=== PATIENT | female | born 1985 | race Caucasian/White ===

== ENCOUNTER 2017-09-05 10:49 | Observation (INO) | payer OTHER ==
[~2017-09-05] VITALS: Ht 160 cm; Wt 117.8 kg
[2017-09-05] MEDS ORDERED: METOPROL TAR25 MG PO (10:58)
[2017-09-05] MEDS ORDERED: PRILOSEC20 MG PO (10:58)
[2017-09-05] MEDS ORDERED: ATORVASTATIN CA40 MG PO (10:59)
--- NOTE | 2017-09-05 11:02 | NUR ---
PT REFUSED WC, AMBULATED TO ER ROOM 12 WITH SPOUSE. CHANGED INTO GOWN.
--- NOTE | 2017-09-05 11:20 | NUR ---
PATIENT RESTING COMFORTABLY IN STRETCHER WITH HOB ELEVATED. PATIENT REPORTS MIDSTERNAL CHEST PAIN RADIATING TO THE RIGHT ANTERIOR CHEST. PAITENT REOIRTS SOB AND NAUSEA WELL. SA02 88% ON ROOM AIR AT THIS TIME. LS CLEAR. SYMETRICAL RISE AND FALL NOTED TO THE CHEST, PATIENT REPORTS PAIN UPON DEEP INSPIRATION. MD NOTIFIED OF LOW SAO2 SAT. WILL CONTINUE TO MONITOR.
[2017-09-05 11:48] LABS: HEMATOCRIT 35.6 % (37.0-47.0); HEMOGLOBIN 10.9 g/dl (12.0-16.0); IMMATURE GRANULOCYTES 0.4 % (0.0-1.0); MEAN CELL VOLUME 78.8 fL CALC (80.0-100.0); MEAN CORPUSCULAR HGB 24.1 pG CALC (26.0-32.0); MEAN CORPUSCULAR HGB CONC 30.6 g/L CALC (32.0-36.0); NEUT# 6.71 thou/uL (2.00-7.15); RED BLOOD COUNT 4.52 mill/uL (4.20-5.60); RED CELL DISTRI WIDTH 15.7 % (11.5-15.5)
--- NOTE | 2017-09-05 12:00 | NUR ---
SAO2 98% ON ROOM AIR PATIENT REPORTS MINIMAL SOB AT THIS TIME WELL CONTINUED 07/02 MIDSTERNAL CP. AWARE.
[2017-09-05 12:11] LABS: ALBUMIN 4.1 g/dL (3.2-5.0); ALKALINE PHOSPHATASE 106 u/l (38-126); AMYLASE 37 u/l (30-110); ANION GAP 13 (6-22 (CALC)); BILIRUBIN, TOTAL 0.4 mg/dL (0.0-1.4); BUN 9 mg/dL (7-17); BUN/CREATININE RATIO 14 (12-20 (CALC)); CALCIUM 9.4 mg/dL (8.4-10.2); CARBON DIOXIDE 28 mmol/l (22-30); CHLORIDE 104 mmol/l (95-108); CREATININE 0.7 mg/dL (0.5-1.0); GFR > 60 ML/MIN (>=60 (CALC)); GFR FOR AFR.AMER. > 60 ML/MIN (>=60 (CALC)); GLUCOSE 89 mg/dL (65-105); LIPASE 38 u/l (23-300); POTASSIUM 4.4 mmol/l (3.5-5.1); SGOT/AST 24 u/l (14-36); SGPT/ALT 28 u/l (9-52); SODIUM 140 mmol/l (137-146); TOTAL PROTEIN 7.9 g/dL (6.3-8.2)
--- NOTE | 2017-09-05 12:20 | NUR ---
PATIENT AMBULATED TO THE BATHROOM WITH A STEADY GAIT. PATIENT DENIES ANY SOB AT THIS TIME. URINE SAMPLE COLLECTED.
[2017-09-05 12:23] LABS: MYOGLOBIN 20 ng/mL (0 - 62)
--- NOTE | 2017-09-05 12:52 | NUR ---
SAO2 88% ON ROOM AIR, GOOD WAVEFORM NOTED. PATIENT DENEIS ANY FURTHER SOB AT THIS TIME. WILL CONTINUE TO MONITOR. AWARE.
--- NOTE | 2017-09-05 13:10 | NUR ---
PATIENT REPORTED CONTINUED PAIN TO THE MIDSTERNAL CHEST AND NAUSEA AFTER RECIEVEING THE CONTRAST. MD NOTIIFED, AWAITING ORDERS.
--- NOTE | 2017-09-05 13:32 | NUR ---
PATIENT REPORTS PAIN IS NOW 7/10 AND DENIES ANY NAUSEA AT THIS TIME. WILL CONTINUE TO MONITOR. CALL [facility] WITHIN REACH.
--- NOTE | 2017-09-05 14:06 | NUR ---
MD AT BEDSIDE TO DISCUSS RESULTS AND ADMISSION.
--- NOTE | 2017-09-05 14:11 | NUR ---
PATIENT AMBULATED TO THE BATHROOM WITH A STEADY GAIT.
--- NOTE | 2017-09-05 14:16 | NUR ---
SBAR PRINTED TO FLOOR
[2017-09-05 14:20] LABS: URINE BILIRUBIN - DIPSTICK NEGATIVE (NEGATIVE); URINE BLOOD DIPSTICK NEGATIVE (NEGATIVE); URINE COLOR YELLOW; URINE GLUCOSE - DIPSTICK NEGATIVE (NEGATIVE); URINE KETONE NEGATIVE (NEGATIVE); URINE LEUK ESTERASE NEGATIVE (NEGATIVE); URINE NITRITE - DIPSTICK NEGATIVE (Negative); URINE PROTEIN - DIPSTICK NEGATIVE (NEG-TRACE); URINE UROBILINOGEN - DIPSTICK 0.2 E.U./dL (0.2)
[2017-09-05 14:21] LABS: URINE CLARITY CLEAR
[2017-09-05 14:25] LABS: BARBITURATES NEGATIVE (NEGATIVE); COCAINE NEGATIVE (NEGATIVE); METHADONE NEGATIVE (NEGATIVE); OXCYCODONE NEGATIVE (NEGATIVE); TETRAHYDROCANNABIONOL NEGATIVE (NEGATIVE); TRICYLIC ANTIDEPRESSANTS NEGATIVE (NEGATIVE)
--- NOTE | 2017-09-05 14:45 | NUR ---
REPORT GIVEN TO ANGLE SAXENA.
--- NOTE | 2017-09-05 14:45 | NUR ---
PT ARRIVED FROM ER VIA WC ACCOMPANIE DBY STAFF IV SITE IS FREE FROM REDNESS OR EDEMA. TELE MONITOR IN PLACE. CONTINUE TO OBSERVE AND MONITOR.
--- NOTE | 2017-09-05 14:50 | NUR ---
Admission Note Report Given to: sbar printed to floor Transported by: Wheelchair x Stretcher Transported with: x Nurse Transporter x Patent IV O2 x Instructional Supervisor
[2017-09-05 15:00] VITALS: BP 138/79
--- NOTE | 2017-09-05 15:15 | NUR ---
ASSESSMENT IS COMPLETED: NO DISTRESS NTOED. NO C/O CP . IV SITE IS FREE FROM REDNESS OR EDEMA. CONTINUE TO OSBERVE AND MONITOR.
[2017-09-05 15:49] LABS: MAGNESIUM 1.8 mg/dL (1.6-2.3)
--- NOTE | 2017-09-05 18:00 | NUR ---
PT IS RELAXING AND TALKING ON THE PHONE NO DISTRESS NOTED. IV SITE IS FREE FROM REDNESS OR EDEMA.
--- NOTE | 2017-09-05 19:00 | NUR ---
RECEIVED CHANGE OF SHIFT EPORT FROM ANGLE SXAENA. PATIENT LYING IN BED AND APPEARS NOT TO BE IN ANY APPARENT ACUTE DISTRESS. REPORTS URRELIEVED PAIN TO BACK. WILL CONTINUE TO MONITOR AND ACCESS.
--- NOTE | 2017-09-05 19:25 | NUR ---
MEDICATE PATIENT WITH 50 MG OF ULTRAM po ORDERED. WILL CONTINUE TO MONITOR.
[2017-09-05 19:35] VITALS: BP 113/66
--- NOTE | 2017-09-06 | NUR ---
PATIENT RESTING QUIETLY AT THIS TIME.
[2017-09-06 00:11] VITALS: BP 88/54
--- NOTE | 2017-09-06 05:00 | NUR ---
NO APPARENT ACUTE CHANGES NOTED IN PT'S CONDITION.
[2017-09-06 05:32] VITALS: BP 85/56
[2017-09-06 06:39] LABS: HEMATOCRIT 34.9 % (37.0-47.0); HEMOGLOBIN 10.7 g/dl (12.0-16.0); IMMATURE GRANULOCYTES 0.4 % (0.0-1.0); MEAN CELL VOLUME 77.7 fL CALC (80.0-100.0); MEAN CORPUSCULAR HGB 23.8 pG CALC (26.0-32.0); MEAN CORPUSCULAR HGB CONC 30.7 g/L CALC (32.0-36.0); NEUT# 5.26 thou/uL (2.00-7.15); RED BLOOD COUNT 4.49 mill/uL (4.20-5.60); RED CELL DISTRI WIDTH 15.9 % (11.5-15.5)
[2017-09-06 06:56] LABS: CHOLESTEROL HDL RATIO 3.8 (<4.4 (CALC))
[2017-09-06 06:57] LABS: ANION GAP 14 (6-22 (CALC)); BUN 10 mg/dL (7-17); BUN/CREATININE RATIO 15 (12-20 (CALC)); CALCIUM 8.9 mg/dL (8.4-10.2); CARBON DIOXIDE 26 mmol/l (22-30); CHLORIDE 103 mmol/l (95-108); CREATININE 0.7 mg/dL (0.5-1.0); GFR > 60 ML/MIN (>=60 (CALC)); GFR FOR AFR.AMER. > 60 ML/MIN (>=60 (CALC)); GLUCOSE 95 mg/dL (65-105); MAGNESIUM 1.8 mg/dL (1.6-2.3); POTASSIUM 4.3 mmol/l (3.5-5.1); SODIUM 138 mmol/l (137-146)
[2017-09-06 07:45] VITALS: BP 110/45
--- NOTE | 2017-09-06 07:45 | NUR ---
ASSESSMENT IS COMPLETED: IV SITE IS FREE FROM REDNESS OR EDEMA. HAS GENERALIZED PAIN. FAMILY IN THE ROOM. CONTINUE TO OBSERVE AND MONITOR.
[2017-09-06 11:30] VITALS: BP 97/65
--- NOTE | 2017-09-06 12:45 | NUR ---
PT IS RELAXING IN BED FAMILY IN THE ROOM. IV SITE IS FREE FROM REDNESS OR EDEMA. CONTINUE TO OBSERVE AND MONITOR.
[2017-09-06] MEDS ORDERED: MEDDOSEPAK PO (15:06)
[2017-09-06] MEDS ORDERED: ADLT ASA LOW81 MG PO (15:06)
--- NOTE | 2017-09-06 16:20 | NUR ---
DISCHARGE INSTRUCTIONS GIVEN AND VERBALIZED UNDERSTANDING. CONTINUE TO OBSERVE AND MONITOR.
--- NOTE | 2017-09-06 16:42 | NUR ---
PT WAS TRANSPORTED TO HER VEHICLE WITH SPOUSE AT HER SIDE. IV SITE WAS DISCONTINUED CATHETER INTACT. NO REDNESS OR EDEMA. TELE MONITOR COMPLETED; Discharge instructions given. Patient verbalizes understanding of same. Discharged in stable condition via Wheelchair to Home with family. All belongings sent with pt.
== END 2017-09-06 16:17 | disposition home or self-care (01) | DRG 313 ==
LOC: ED 10:49 → ED-I 13:58 → ED 14:15 → MS2 14:16
PROVIDERS: Emergency Medicine; Nurse Practitioner Family; ADMIT Internal Medicine; ATTEND Internal Medicine
DX: R07.89 Other chest pain (principal); M32.9 Systemic lupus erythematosus, unspecified; M35.1 Other overlap syndromes; F41.9 Anxiety disorder, unspecified; E78.5 Hyperlipidemia, unspecified; J45.909 Unspecified asthma, uncomplicated; M79.7 Fibromyalgia; Z87.891 Personal history of nicotine dependence; Z82.49 Family history of ischemic heart disease and other diseases of the circulatory system
CPT/HCPCS: G0378; Q9967

== ENCOUNTER 2017-09-12 16:55 | Emergency (ER) | payer OTHER ==
[~2017-09-12] VITALS: Ht 160 cm; Wt 130.0 kg
[~2017-09-12 16:55] MED LIST: ADLT ASA LOW81 MG PO; ATORVASTATIN CA40 MG PO; MEDDOSEPAK PO; METOPROL TAR25 MG PO; PRILOSEC20 MG PO
[2017-09-12] MEDS ORDERED: AMOXICILLIN500 MG PO (17:37)
[2017-09-12 17:44] VITALS: BP 122/66
== END 2017-09-12 17:48 | disposition home or self-care (01) | DRG 153 ==
LOC: ED 16:55
DX: J02.9 Acute pharyngitis, unspecified (principal); M32.9 Systemic lupus erythematosus, unspecified; F41.9 Anxiety disorder, unspecified; J45.909 Unspecified asthma, uncomplicated; M79.7 Fibromyalgia; M13.80 Other specified arthritis, unspecified site

== ENCOUNTER 2017-10-05 19:52 | Emergency (ER) | payer OTHER ==
[~2017-10-05] VITALS: Ht 160 cm; Wt 122.4 kg
[~2017-10-05 19:52] MED LIST changes: +AMOXICILLIN500 MG PO
[2017-10-05 20:51] LABS: HEMATOCRIT 34.3 % (37.0-47.0); HEMOGLOBIN 10.7 g/dl (12.0-16.0); IMMATURE GRANULOCYTES 0.4 % (0.0-1.0); MEAN CELL VOLUME 78.7 fL CALC (80.0-100.0); MEAN CORPUSCULAR HGB 24.5 pG CALC (26.0-32.0); MEAN CORPUSCULAR HGB CONC 31.2 g/L CALC (32.0-36.0); NEUT# 8.65 thou/uL (2.00-7.15); RED BLOOD COUNT 4.36 mill/uL (4.20-5.60); RED CELL DISTRI WIDTH 15.8 % (11.5-15.5)
[2017-10-05 20:55] LABS: URINE BILIRUBIN - DIPSTICK NEGATIVE (NEGATIVE); URINE BLOOD DIPSTICK SMALL (NEGATIVE); URINE COLOR YELLOW; URINE GLUCOSE - DIPSTICK NEGATIVE (NEGATIVE); URINE KETONE NEGATIVE (NEGATIVE); URINE LEUK ESTERASE NEGATIVE (NEGATIVE); URINE NITRITE - DIPSTICK NEGATIVE (Negative); URINE PROTEIN - DIPSTICK NEGATIVE (NEG-TRACE); URINE UROBILINOGEN - DIPSTICK 0.2 E.U./dL (0.2)
[2017-10-05 20:56] LABS: URINE CLARITY CLEAR
[2017-10-05 20:58] LABS: ALBUMIN 3.9 g/dL (3.2-5.0); ALKALINE PHOSPHATASE 126 u/l (38-126); AMYLASE 38 u/l (30-110); ANION GAP 13 (6-22 (CALC)); BILIRUBIN, TOTAL 0.2 mg/dL (0.0-1.4); BUN 11 mg/dL (7-17); BUN/CREATININE RATIO 13 (12-20 (CALC)); CALCIUM 8.9 mg/dL (8.4-10.2); CARBON DIOXIDE 28 mmol/l (22-30); CHLORIDE 103 mmol/l (95-108); CREATININE 0.9 mg/dL (0.5-1.0); GFR > 60 ML/MIN (>=60 (CALC)); GFR FOR AFR.AMER. > 60 ML/MIN (>=60 (CALC)); GLUCOSE 90 mg/dL (65-105); LIPASE 47 u/l (23-300); POTASSIUM 4.3 mmol/l (3.5-5.1); SGOT/AST 27 u/l (14-36); SGPT/ALT 22 u/l (9-52); SODIUM 140 mmol/l (137-146); TOTAL PROTEIN 7.5 g/dL (6.3-8.2)
[2017-10-05 21:02] LABS: URINE SQUAMOUS EPITHELIAL CELL FEW EPI/hpf (0-FEW); URINE WBC 0-2 WBC/hpf (0-5)
[2017-10-05 21:49] VITALS: BP 124/71
== END 2017-10-05 21:51 | disposition home or self-care (01) | DRG 392 ==
LOC: ED 19:52
PROVIDERS: Emergency Medicine
DX: R10.12 Left upper quadrant pain (principal); D64.9 Anemia, unspecified; R05 Cough
CPT/HCPCS: S0164

== ENCOUNTER 2017-10-23 03:27 | Emergency (ER) | payer OTHER ==
[~2017-10-23] VITALS: Ht 160 cm; Wt 121.0 kg
[2017-10-23 04:42] LABS: INFLUENZA A POSITIVE (NONE DETECT); INFLUENZA B NONE DETECTED (NONE DETECT)
[2017-10-23] MEDS ORDERED: TAM75CAP PO (05:15)
[2017-10-23] MEDS ORDERED: CODEINE/GUAIFEN1 SOL PO (05:15)
[2017-10-23 05:40] VITALS: BP 122/71
== END 2017-10-23 05:42 | disposition home or self-care (01) | DRG 153 ==
LOC: ED 03:27
PROVIDERS: Emergency Medicine
DX: J11.1 Influenza due to unidentified influenza virus with other respiratory manifestations (principal); R05 Cough; R50.9 Fever, unspecified; R09.89 Other specified symptoms and signs involving the circulatory and respiratory systems

== ENCOUNTER 2019-03-17 18:14 | Emergency (ER) | payer OTHER ==
[~2019-03-17] VITALS: Ht 160 cm; Wt 150.0 kg
[~2019-03-17 18:14] MED LIST changes: +CODEINE/GUAIFEN1 SOL PO; +TAM75CAP PO
[2019-03-17] MEDS ORDERED: PANTOPRAZOLE SO40 MG PO (18:53)
[2019-03-17 19:03] LABS: HEMATOCRIT 36.5 % (37.0-47.0); IMMATURE GRANULOCYTES 0.4 % (0.0-5.0); MEAN CELL VOLUME 79.3 fL CALC (80.0-100.0); MEAN CORPUSCULAR HGB 23.9 pG CALC (26.0-32.0); MEAN CORPUSCULAR HGB CONC 30.1 g/L CALC (32.0-36.0); NEUT# 5.95 thou/uL (2.00-7.15); RED BLOOD COUNT 4.6 mill/uL (4.20-5.60); RED CELL DISTRI WIDTH 16.3 % (11.5-15.5)
[2019-03-17 19:23] LABS: ALBUMIN 4.1 g/dL (3.2-5.0); ALKALINE PHOSPHATASE 113 u/l (38-126); ANION GAP 12 (6-22 (CALC)); BILIRUBIN, TOTAL 0.3 mg/dL (0.0-1.4); BUN 10 mg/dL (7-17); BUN/CREATININE RATIO 16 (12-20 (CALC)); CARBON DIOXIDE 28 mmol/l (22-30); CHLORIDE 105 mmol/l (95-108); CREATININE 0.6 mg/dL (0.5-1.0); GFR > 60 ML/MIN (>=60 (CALC)); GFR FOR AFR.AMER. > 60 ML/MIN (>=60 (CALC)); LIPASE 30 u/l (23-300); POTASSIUM 4.1 mmol/l (3.5-5.1); SODIUM 141 mmol/l (137-146); TOTAL PROTEIN 7.7 g/dL (6.3-8.2)
[2019-03-17 19:24] LABS: SGOT/AST 37 u/l (14-36)
[2019-03-17 19:30] LABS: URINE BILIRUBIN - DIPSTICK NEGATIVE (NEGATIVE); URINE BLOOD DIPSTICK SMALL (NEGATIVE); URINE CLARITY CLEAR; URINE COLOR YELLOW; URINE GLUCOSE - DIPSTICK NEGATIVE (NEGATIVE); URINE KETONE NEGATIVE (NEGATIVE); URINE LEUK ESTERASE NEGATIVE (Negative); URINE NITRITE - DIPSTICK NEGATIVE (Negative); URINE PH 6.5 (4.5-8.0); URINE PROTEIN - DIPSTICK NEGATIVE (NEG-TRACE); URINE UROBILINOGEN - DIPSTICK 0.2 E.U./dL (0.2)
[2019-03-17 19:44] LABS: URINE SQUAMOUS EPITHELIAL CELL FEW EPI/hpf (0-FEW)
[2019-03-17] MEDS ORDERED: REGLAN10 MG PO (19:48)
[2019-03-17 20:14] VITALS: BP 115/55
== END 2019-03-17 20:14 | disposition home or self-care (01) ==
LOC: ED 18:14
DX: R10.13 Epigastric pain (principal); R10.12 Left upper quadrant pain; R11.0 Nausea

== ENCOUNTER 2020-12-09 08:25 | Emergency (ER) | payer OTHER ==
[~2020-12-09] VITALS: Ht 160 cm; Wt 136.0 kg
[~2020-12-09 08:25] MED LIST changes: +PANTOPRAZOLE SO40 MG PO; +REGLAN10 MG PO
[2020-12-09] MEDS ORDERED: CEPHALEXIN500 M1 PO (08:48)
[2020-12-09] MEDS ORDERED: BACTRIM DS1 TAB PO (08:48)
[2020-12-09 11:09] VITALS: BP 157/89
== END 2020-12-09 11:10 | disposition home or self-care (01) ==
LOC: ED 08:25
DX: L02.415 Cutaneous abscess of right lower limb (principal); J45.909 Unspecified asthma, uncomplicated; F41.9 Anxiety disorder, unspecified; F31.9 Bipolar disorder, unspecified; F17.200 Nicotine dependence, unspecified, uncomplicated

== ENCOUNTER 2022-07-25 21:35 | Emergency (ER) | payer OTHER ==
[~2022-07-25] VITALS: Ht 160 cm; Wt 125.0 kg
[~2022-07-25 21:35] MED LIST changes: +BACTRIM DS1 TAB PO; +CEPHALEXIN500 M1 PO
[2022-07-25] MEDS ORDERED: METOPROLOL TART50 MG PO (22:40)
[2022-07-25] MEDS ORDERED: OMEPRAZOLE20 MG PO (22:41)
[2022-07-25] MEDS ORDERED: ADVAIR DISK1 INH (22:42)
[2022-07-25] MEDS ORDERED: IRON325 M1 PO (22:43)
[2022-07-25] MEDS ORDERED: ZYRTEC10 M5 PO (22:44)
[2022-07-26 00:50] VITALS: BP 130/83
== END 2022-07-26 01:00 | disposition short-term general hospital (02) | DRG 999 ==
LOC: ED 21:35
PROC: 2W3RX1Z Immobilization of Left Lower Leg using Splint (ICD-10-PCS; principal; 2022-07-25)
DX: S82.302B Unspecified fracture of lower end of left tibia, initial encounter for open fracture type I or II (principal); S82.832B Other fracture of upper and lower end of left fibula, initial encounter for open fracture type I or II; J45.909 Unspecified asthma, uncomplicated; M06.9 Rheumatoid arthritis, unspecified; F31.9 Bipolar disorder, unspecified; F41.9 Anxiety disorder, unspecified; F17.200 Nicotine dependence, unspecified, uncomplicated; W01.0XXA Fall on same level from slipping, tripping and stumbling without subsequent striking against object, initial encounter; Y93.89 Activity, other specified; Y92.89 Other specified places as the place of occurrence of the external cause; Y99.0 Civilian activity done for income or pay

== ENCOUNTER 2024-07-28 17:54 | Emergency (ER) | payer OTHER ==
[~2024-07-28] VITALS: Ht 160 cm; Wt 127.0 kg
[~2024-07-28 17:54] MED LIST changes: +ADVAIR DISK1 INH; +IRON325 M1 PO; +METOPROLOL TART50 MG PO; +OMEPRAZOLE20 MG PO; +ZYRTEC10 M5 PO
[2024-07-28 18:03] VITALS: BP 152/100
[2024-07-28] MEDS ORDERED: IBUPROFEN 600 MG/TAB PO ONE (18:15)
[2024-07-28] MEDS ORDERED: ONDANSETRON 4 MG/TAB ODT PO ONE (18:30)
[2024-07-28] MEDS ORDERED: TORADOL PO (20:00)
[2024-07-28] MEDS ORDERED: HYDROcodone 5 MG/Acetaminophen 325 MG/COMBO PO ONE (20:00)
[2024-07-28 22:23] VITALS: BP 152/100
== END 2024-07-28 22:23 | disposition home or self-care (01) | DRG 914 ==
LOC: ED 17:54
DX: S09.90XA Unspecified injury of head, initial encounter (principal); M54.2 Cervicalgia; F41.9 Anxiety disorder, unspecified; F31.9 Bipolar disorder, unspecified; J45.909 Unspecified asthma, uncomplicated; F17.200 Nicotine dependence, unspecified, uncomplicated; W01.0XXA Fall on same level from slipping, tripping and stumbling without subsequent striking against object, initial encounter; Y92.008 Other place in unspecified non-institutional (private) residence as the place of occurrence of the external cause; Y99.0 Civilian activity done for income or pay

== ENCOUNTER 2024-11-04 14:39 | Emergency (ER) | payer SELFPAY ==
[~2024-11-04] VITALS: Ht 160 cm; Wt 123.4 kg
[~2024-11-04 14:39] MED LIST changes: +TORADOL PO
[2024-11-04 16:08] LABS: URINE BILIRUBIN - DIPSTICK Negative (NEGATIVE); URINE BLOOD DIPSTICK Moderate (NEGATIVE); URINE COLOR Yellow; URINE GLUCOSE - DIPSTICK Negative (NEGATIVE); URINE KETONE Negative (NEGATIVE); URINE LEUK ESTERASE Large (NEGATIVE); URINE NITRITE - DIPSTICK Negative (Negative); URINE PROTEIN - DIPSTICK >=300 mg/dL (NEG-TRACE); URINE SPECIFIC GRAVITY 1.015; URINE UROBILINOGEN - DIPSTICK 0.2 E.U./dL (0.2)
[2024-11-04 16:09] VITALS: BP 139/76
[2024-11-04 16:14] LABS: URINE WBC >100 WBC/hpf (0-5)
[2024-11-04 16:15] VITALS: BP 143/85
[2024-11-04 16:15] LABS: URINE BACTERIA MODERATE hpf
[2024-11-04 16:31] VITALS: BP 137/61
[2024-11-04 16:42] LABS: BASO% 0.4 % (0-3); EOS% 1.9 % (0-8); IMMATURE GRANULOCYTES 0.2 % (0.0-5.0); LYMPH% 18.4 % (15-41); MONO% 7.9 % (2-13); NEUT# 6.72 thou/uL (2.00-7.15); NEUT% 71.2 % (42-76); RED BLOOD COUNT 4.85 mill/uL (4.20-5.60); RED CELL DISTRI WIDTH 13.5 % (11.5-15.5)
[2024-11-04 16:43] LABS: HEMATOCRIT 42.2 % (37.0-47.0); HEMOGLOBIN 13.1 g/dl (12.0-16.0)
[2024-11-04 17:00] LABS: ALBUMIN 4.1 g/dL (3.2-5.0); CREATININE 0.6 mg/dL (0.5-1.0); TOTAL PROTEIN 7.7 g/dL (6.3-8.2)
[2024-11-04 17:01] VITALS: BP 114/73
[2024-11-04 17:01] LABS: BILIRUBIN, TOTAL 0.7 mg/dL (0.02-1.3)
[2024-11-04 17:15] VITALS: BP 127/82
[2024-11-04] MEDS ORDERED: KETOROLAC TROMETHAMINE 30 MG/ML SDV IM ONE (17:15)
[2024-11-04] MEDS ORDERED: cefTRIAXone SODIUM 2 GM in SODIUM CHLORIDE 0.9% 100 ML IV ONE (18:20)
[2024-11-04] MEDS ORDERED: CEFPODOXIME PR200 MG PO (18:33)
[2024-11-04 19:04] VITALS: BP 154/82
== END 2024-11-04 19:04 | disposition home or self-care (01) | DRG 694 ==
LOC: ED 14:39
PROVIDERS: Family Medicine; Nurse Practitioner
DX: N20.0 Calculus of kidney (principal); B96.20 Unspecified Escherichia coli [E. coli] as the cause of diseases classified elsewhere; M06.9 Rheumatoid arthritis, unspecified; M35.9 Systemic involvement of connective tissue, unspecified; F31.9 Bipolar disorder, unspecified; F17.200 Nicotine dependence, unspecified, uncomplicated
CPT/HCPCS: J0696